=== PATIENT | male | born 1970 | race Caucasian/White ===

== ENCOUNTER 2019-01-12 09:11 | Emergency (ER) | payer OTHER | END 2019-01-12 11:05 | disposition home or self-care (01) | LOC: JERFT 09:11 | DX: T63.441A Toxic effect of venom of bees, accidental (unintentional), initial encounter (principal); K13.79 Other lesions of oral mucosa; Y92.69 Other specified industrial and construction area as the place of occurrence of the external cause; Y99.0 Civilian activity done for income or pay ==